=== PATIENT | female | born 1965 | race Caucasian/White ===

== ENCOUNTER 2025-07-11 09:57 | Outpatient (CLI) | payer MEDICARE, MEDICAID ==
[~2025-07-11] VITALS: Ht 160.7 cm; Wt 60.3 kg
[2025-07-11 11:34] VITALS: PULSE 71; RESP 16; O2SAT 98
[2025-07-11] MEDS: albuterol 2.5 MG/3 ML nebule NEB ONE (11:41)
--- NOTE | 2025-07-11 14:58 | PROCEDURE NOTE - Respiratory ---
Procedure Note-Respiratory Providers to CC Copies To 1: VIKAS KURTZ Procedure Name: This is a complete pulmonary function study dated July 11, 2025. Spirometry measurements: Both the forced vital capacity and the FEV1 are normal. The FEV1 ratio is normal. The flow rate measurements are normal. Bro nchodilator was not administered as part of the study. Lung volume measurements: The total lung capacity and the functional residual capacity measurements are normal. The residual volume is at the lower limit of normal. Lung diffusion measurement: The DLCO measurement is normal. The alveolar volume measurement is normal. Airway resistance measurement: The airway resistance shows no elevation. The airway conductance measurement is slightly elevated. Conclusion: Normal pulmonary function study. There is no evidence for obstructive lung disease. There is no evidence for restrictive lung disease. The lung diffusion capacity remains normal. We have no previous studies for comparison. GABBI RAMIREZ MD Jul 11, 2025 14:58
== END 2025-07-11 23:59 | disposition home or self-care (01) ==
LOC: RT 09:57
PROVIDERS: ATTEND Emergency Medicine Medical Toxicology
DX: D86.9 Sarcoidosis, unspecified (principal); R94.2 Abnormal results of pulmonary function studies
CPT/HCPCS: 94010; 94727; 94729; 94760